=== PATIENT | female | born 1950 | race Caucasian/White ===

== ENCOUNTER → 2016-12-03 | Outpatient (CLI) | payer MEDICARE ==
--- NOTE | 2016-12-03 18:19 | CT ---
EXAMINATION TYPE: CT brain wo con DATE OF EXAM: 12/03/2016 6:06 PM COMPARISON: 01/20/2013 CT HISTORY: Headache and nausea post trauma today CT DLP: 1108.4 mGycm Automated exposure control for dose reduction was used. FINDINGS: There is no acute intracranial hemorrhage, mass effect, or midline shift identified. The v entricles and sulci are within normal limits in size. The globes are intact and the visualized sinus es are clear. Note: Prominent cerumen is incidentally noted within the left exterior auditory canal. IMPRESSION: NO ACUTE PROCESS, CT HEAD WITHOUT CONTRAST.
== END | disposition home or self-care (01) ==
LOC: RADCTMAIN 17:27
PROVIDERS: ATTEND Family Medicine
DX: S09.90XS Unspecified injury of head, sequela (principal)
CPT/HCPCS: 70450

== ENCOUNTER → 2017-03-24 | Outpatient (CLI) | payer MEDICARE | END | disposition home or self-care (01) | LOC: LABPAT 11:24 | PROVIDERS: ATTEND Surgery | DX: Z01.812 Encounter for preprocedural laboratory examination (principal) | CPT/HCPCS: 87070 ==

== ENCOUNTER → 2017-08-11 | Outpatient (CLI) | payer OTHER ==
--- NOTE | 2017-08-11 13:34 | US ---
EXAMINATION TYPE: US venous doppler duplex LE LT DATE OF EXAM: 08/11/2017 1:15 PM COMPARISON: 12/30/2012 CLINICAL HISTORY: 66-year-old female I82.409 Deep vein thrombosis, M79.662 Pain L leg. SIDE PERFORMED: Left TECHNIQUE: The lower extremity deep venous system is examined utilizing real time linear array sonog zuly with graded compression, doppler sonography and color-flow sonography. FINDINGS: VESSELS IMAGED: External Iliac Vein (EIV) Common Femoral Vein Deep Femoral Vein Greater Saphenous Vein * Femoral Vein Popliteal Vein Proximal Calf Veins (* superficial vessels) There are linear intraluminal filling defect seen within the upper femoral vein and also throughout t he popliteal vein. Only a short segment of the popliteal vein shows incomplete compressibility. IMPRESSION: Left lower extremity: Some webs and minimal strands of chronic clot within the upper femoral vein and in the popliteal vein. No occlusive thrombus or acute DVT.
== END ==
LOC: RADUSWWP 12:45
PROVIDERS: ATTEND Internal Medicine Critical Care Medicine
DX: I82.512 Chronic embolism and thrombosis of left femoral vein (principal); I82.532 Chronic embolism and thrombosis of left popliteal vein

== ENCOUNTER → 2017-09-01 | Outpatient (CLI) | payer MEDICARE ==
--- NOTE | 2017-09-01 16:49 | PN ---
PROGRESS NOTE This is an annual check regarding the obstructive sleep apnea. This is a 66-year-old female patient with severe obstructive sleep apnea with an AHI of 76. The patient is coming in for an annual check. The patient remains very compliant with CPAP therapy. She is using it every night. Her CPAP compliance for more than 4 hours is 29/30. Her average CPAP is around 6.3 hours per night. The patient's AHI while on treatment is down to 1.1. Leak factor is only 6 L/minute. Note that the patient has lost approximately 37 pounds. The patient used to weight 238 and currently she is down to 201. She is using a Dream Wear nose mask. No high pressure sensation. No swallowing of air. No belching. No abdominal distention. She is waking up alert and awake during the day and she is not having any major hypersomnia or sleepiness. No falling asleep while driving or even routine day-to-day activities. No other new onset comorbid conditions over the past 1 year. PHYSICAL EXAMINATION: BP is 121/83, pulse 80, respirations 16, temperature 97.4, saturation 97% on room air and weight is 201, height is 5 feet 5 inches, BMI 32.9. GENERAL APPEARANCE: Calm comfortable in no acute distress. Head is atraumatic, normocephalic. NECK: Supple. There is no JVD, no goiter or neck masses. Mallampati class IV. LUNGS: Clear to auscultation. HEART: Sounds regular rhythm. Normal S1, S2. No S3. No murmurs. ABDOMEN: Soft, nontender. No organomegaly. EXTREMITIES: No edema. No cyanosis or clubbing. Skin negative for ulcers, wounds or cellulitis. NEUROLOGIC: A and O x3. There is no focal neurological deficit. IMPRESSION: 1. Severe symptomatic obstructive sleep apnea with an AHI of 76. The patient currently is on CPAP pressure of 11 cm of water. The patient has lost considerable amount of weight and she has lost an additional 37 pounds and currently she is down to 201 pounds. 2. Chronic hypersomnia recovered and the patient's Alexis score is down. 3. Obesity with ongoing weight loss. PLAN: 1. Based on ongoing weight loss, I would suggest switching the patient from a fixed CPAP to an auto CPAP with a maximum pressure of 11 and minimum pressure of 4 and allow the machine to make its own adjustments as the patient is losing weight. I am sure that the patient would require lower CPAP pressure as she continues to lose weight. 2. Continue same mask interface. 3. Switch this patient to auto ramp mode. Her temperature of tubing is 81 degrees Fahrenheit, humidities is at RO mode. She is benefitting from the treatment. We will continue to follow. Renew her supplies and see me back in a year's time or earlier if needed. MMDOMO / SALMA: [id number] /
== END | disposition home or self-care (01) ==
LOC: SLEEP 14:37
PROVIDERS: ATTEND Internal Medicine Critical Care Medicine
DX: G47.33 Obstructive sleep apnea (adult) (pediatric) (principal); G47.10 Hypersomnia, unspecified; E66.9 Obesity, unspecified; Z68.32 Body mass index [BMI] 32.0-32.9, adult

== ENCOUNTER → 2018-12-07 | Outpatient (CLI) | payer MEDICARE ==
--- NOTE | 2018-12-07 18:35 | PN ---
PROGRESS NOTE Antonia is coming in for an annual check regarding her obstructive sleep apnea. She is on an APAP at a minimum pressure of 5, maximum pressure of 15. She had severe AIDAN with an AHI of 76. She is doing extremely well. Only complaint is some nose irritation from the Mirage FX nose mask. She is looking for alternatives. Otherwise her treatment has been successful. She is waking up alert and refreshed during the day. She has been averaging around 6.4 hours of CPAP use per night CPAP use for more than 4 hours is 27 out of 30. Her average pressure is at 9.8, leak is 42 per minute. AHI is down to 1.0. No other new complaints otherwise for now, no other new onset of medical problems and comorbidities. BP is 138/73, pulse 83, respirations 16, temperature 98.5, saturation 98% on room air. Weight is 206. Height is 5 feet 5 inches, BMI 33.7, [place] score is at 9. General appearance: Calm and comfortable. Head is atraumatic, normocephalic. Neck is supple. There is no JVD. No goiter or neck mass. Lungs diminished breath sounds bilaterally; otherwise clear. Heart sounds are regular rate and rhythm. Normal S1, S2. No S3. No murmurs. Abdomen is soft, nontender. No organomegaly. EXTREMITIES: No edema. No cyanosis or clubbing. Neurologically: Alert and oriented times three. There is no focal neurological deficits. IMPRESSION: 1. Severe obstructive sleep apnea AHI of 76. The patient is on a APAP, minimum of 5, maximum 15. Treatment is successful for now. The patient is compliant. 2. Hypersomnia, recovered, [place] score is down to 9. PLAN: 1. Offer this patient Air Fit N20 nose mask. She was also offered a Whisk mask. She will try both and decide if any 1 of those will be a good fit for her. 2. No change in pressure setting. She is compliant with the treatment, remains successful. Encourage weight loss. Implement good sleep hygiene measures and see me back in a few years in followup regarding AIDAN treatment. MMODL / IJN: [id number] /
== END ==
LOC: SLEEP 15:54
PROVIDERS: ATTEND Internal Medicine Critical Care Medicine
DX: G47.33 Obstructive sleep apnea (adult) (pediatric) (principal); Z99.89 Dependence on other enabling machines and devices

== ENCOUNTER → 2019-10-13 | Outpatient (CLI) | payer MEDICARE ==
[2019-10-14 13:45] LABS: IgG Subclass 3 13.4 mg/dL (11.0-85.0); IgG Subclass 4 24.9 mg/dL (3.0-175.0)
== END | disposition home or self-care (01) ==
LOC: LABWHC1 10:22
PROVIDERS: ATTEND Internal Medicine Critical Care Medicine
DX: I82.409 Acute embolism and thrombosis of unspecified deep veins of unspecified lower extremity (principal); I89.0 Lymphedema, not elsewhere classified; Z86.711 Personal history of pulmonary embolism
CPT/HCPCS: 36415; 82787

== ENCOUNTER → 2020-11-16 | Outpatient (CLI) | payer MEDICARE ==
[2020-11-16 15:37] LABS: Thyroid Peroxidase Antibodies 30.6 U/mL (0.0-60.0)
[2020-11-16 15:49] LABS: HCT 45.2 % (37.2-46.3); HGB 14.9 g/dL (12.0-15.0); MCH 30.6 pg (27.0-32.0); MCV 92.8 fL (80.0-97.0); Mean Platelet Volume 9.2 fL (9.5-12.2); Platelet Count 277 X 10*3/uL (140-440); RBC 4.87 X 10*6/uL (4.10-5.20); RDW 13.1 % (11.5-14.5); WBC 4.82 X 10*3/uL (4.50-10.00)
[2020-11-16 17:46] LABS: ALT 51 U/L (8-44); AST 24 U/L (13-35); African American GFR (CKD) 87.2 (60.0-200.0); Albumin/Globulin Ratio 1.92 (1.60-3.17); Alkaline Phosphatase 50 U/L (41-126); BUN/Creat Ratio 26.25 Ratio (12.00-20.00); C Reactive Protein <0.4 mg/dL (0.0-0.8); Calcium 9.1 mg/dL (8.7-10.3); Carbon Dioxide 24.9 mmol/L (21.6-31.8); Chloride 106 mmol/L (96-109); Chol/HDL Ratio 3.13; Cholesterol 213 mg/dL (0-200); Globulin 2.4 g/dL (1.6-3.3); Glucose 109 mg/dL (70-110); Non-African American GFR(CKD) 75.2 (60.0-200.0); Potassium 4.4 mmol/L (3.5-5.5); Sodium 140 mmol/L (135-145); Total Bilirubin 0.4 mg/dL (0.3-1.2)
[2020-11-16 19:13] LABS: Erythrocyte Sedimentation Rate 8 mm/Hr (0-30)
== END | disposition home or self-care (01) ==
LOC: LABWHC1 09:57
PROVIDERS: ATTEND Family Medicine
DX: E78.5 Hyperlipidemia, unspecified (principal); A49.02 Methicillin resistant Staphylococcus aureus infection, unspecified site
CPT/HCPCS: 36415; 80053; 80061; 84439; 84443; 84480; 84481; 84482; 85027; 85652; 86140; 86376

== ENCOUNTER → 2021-02-12 | Outpatient (CLI) | payer MEDICARE ==
--- NOTE | 2021-02-12 18:34 | PN ---
PROGRESS NOTE This is a 70-year-old female patient coming in for an annual check regarding obstructive sleep apnea. She is doing extremely well. She has an AHI of 76 consistent with severe disease and she utilizes an APAP, pressure minimum of 5, maximum of 15 cm of water, and she is using a Mirage FX nasal mask. On today's evaluation, she has remained compliant, averaging around 5.9 hours of CPAP use, and her CPAP use for more than 4 hours is exceeding 90%. Average pressure delivered by the machine is around 10 and her AHI is down to 2. She has gained weight. She used to weigh 206 pounds back in 2019 and currently she is up to 240 pounds. Despite that, her treatment remains successful. The patient has no significant complaints. REVIEW OF SYSTEMS: Fourteen-point review of systems was done. Positive findings are all mentioned above in the history of present illness. PHYSICAL EXAMINATION: VITAL SIGNS: BP is 131/80, pulse 80, respirations 12, temperature 97.1, saturation 95% on room air. Height is 5 feet 7 inches. Weight is 245. Gilbert score is 11. GENERAL APPEARANCE: Calm, comfortable. HEAD: Atraumatic, normocephalic. NECK: Supple. No JVD. No goiter or neck masses. Obese. LUNGS: Clear to auscultation. HEART: Heart sounds are regular rate and rhythm. Normal S1, S2. No S3, S4. No murmurs. ABDOMEN: Soft, nontender. No organomegaly. EXTREMITIES: No edema. No cyanosis or clubbing. IMPRESSION: 1. Severe obstructive sleep apnea, AHI of 76, currently adequately treated on APAP mode, pressure minimum of 5, maximum of 15. 2. Hypersomnia, improved. 3. Obesity with interval weight gain. Current body mass index is up to 38. PLAN: 1. I offered the patient an AirFit N20 nose mask, medium size, as an alternative for her Mirage FX nasal mask. 2. Encourage weight loss. 3. Keep the same APAP mode. 4. It has been noted that the average pressure delivered by the machine is higher and this is probably related to her increased body weight. No leaks identified for now. Continue treatment and see me back in a few years' time in followup, earlier if needed. No need for any further adjustments. Refills were given on her equipment. MMODL / IJN: [id number] /
== END ==
LOC: SLEEP 16:31
PROVIDERS: ATTEND Internal Medicine Critical Care Medicine
DX: G47.33 Obstructive sleep apnea (adult) (pediatric) (principal); E66.9 Obesity, unspecified; Z68.38 Body mass index [BMI] 38.0-38.9, adult; Z88.0 Allergy status to penicillin; Z88.2 Allergy status to sulfonamides

== ENCOUNTER → 2022-02-04 | Outpatient (CLI) | payer MEDICARE ==
--- NOTE | 2022-02-04 14:18 | P.PN ---
Subjective Progress Note Date: 02/04/22 71-year-old female patient diagnosed having severe obstructive sleep apnea coming in for an annual checkup regarding her obstructive sleep apnea. The patient is doing well and she cares the same body weight with probably few pounds weight gain over the past 1 year. She remains on CPAP therapy and the pa haylee remains on a Pap mode through her ResMed CPAP unit. She is currently at a minimum pressure of 5 and a maximum pressure of 15, a Pap mode. The patient is utilizing a Nam Fx nasal mask and her main complaint today is that she is leaking around the mask and she is having some dryness in her eye especially in the morning times. Based on that, she is looking for alternative mask. I checked the compliance data on the machine and over the past 30 days, the patient is utilizing her machine more than 4 hours 29 out of 30 days and the patient has been averaging about 6 hours of CPAP use per night. Her average pressure delivered by them she is around 9.5 cm of water. Her leak is in order of 6 L per minute and her AHI is down to 2.3. As such, the treatment is successful. Her current upper scores of 8. No chest pain. No heartburn. No shortness of breath. No major hypersomnia and sleepiness during the day. No other significant events over the past 1 year. Her health has been essentially stable. No angina. No palpitation. No congestion heart failure. Objective - Exam BP is 134/85 with a pulse of 83 respiration of 16 and weight is 248 with an Jackson score of 8 and a temperature of 98.0. Oxygen saturation 97% on room air. The patient appeared well nourished and normally developed. Vital signs as documented. Head exam is unremarkable. No scleral icterus or corneal arcus noted. Neck is without jugular venous distension, thyromegaly, or carotid bruits. Carotid upstrokes are brisk bilaterally. Lungs are clear to auscultation and percussion. Cardiac exam reveals the PMI to be normally sized and situated. Rhythm is regular. First and second heart sounds normal. No murmurs, rubs or gallops. Abdominal exam reveals normal bowel sounds, no masses, no organomegaly and no aortic enlargement. Extremities are nonedematous and both femoral and pedal pulses are normal.Examination of the skin revealed no evidence of si gnificant rashes, suspicious appearing nevi or other concerning lesions.Neurologically, the patient is awake and alert and the patient does not have any focal neurological deficit. Cranial nerves are essentially intact. Assessment and Plan Plan: 1 severe obstructive sleep apnea with an AHI of 76. The patient is undergoing successful APAP treatment 2 hypersomnia, chronic, improved with CPAP therapy 3 obesity with a body weight of 248 4 Dryness of the eyes Plan Continue CPAP therapy at the same pressure settings, the patient will be kept on APAP mode, 5/15 cm of water Switch this patient an air-fit N20 medium size nasal mask The mask that was done in the office today and the patient had a good seal and her mask interface seemed to be quite comfortable Encourage weight loss changes the humidity level down to 2 and drop the temperature of the tubing to 78 seen back in the office in a year's time follow-up. Anticipate improvement and the dryness of the eye with a new mask.
== END ==
LOC: SLEEP 13:19
PROVIDERS: ATTEND Internal Medicine Critical Care Medicine
DX: G47.33 Obstructive sleep apnea (adult) (pediatric) (principal); Z99.89 Dependence on other enabling machines and devices; E66.9 Obesity, unspecified; H04.129 Dry eye syndrome of unspecified lacrimal gland; Z88.0 Allergy status to penicillin; Z88.2 Allergy status to sulfonamides

== ENCOUNTER 2022-07-20 19:23 | Emergency (ER) | payer OTHER, MEDICARE ==
[2022-07-20 19:34] VITALS: TEMP 97.8
[2022-07-20 20:12] LABS: Basophils % (A) 0 %; Eosinophils # (A) 0.1 k/uL (0-0.7); Eosinophils % (A) 2 %; HCT 45.2 % (34.0-46.0); HGB 15.6 gm/dL (11.4-16.0); Lymphocytes % (A) 34 %; MCH 31.9 pg (25.0-35.0); MCHC 34.5 g/dL (31.0-37.0); MCV 92.3 fL (80.0-100.0); Mean Platelet Volume 7.3; Monocytes # (A) 0.6 k/uL (0-1.0); Monocytes % (A) 7 %; Neutrophils # (A) 4.8 k/uL (1.3-7.7); Neutrophils % (A) 55 %; Platelet Count 347 k/uL (150-450); RDW 12.9 % (11.5-15.5); WBC 8.8 k/uL (3.8-10.6)
[2022-07-20 20:21] LABS: Potassium 3.8 mmol/L (3.5-5.1)
[2022-07-20 20:22] LABS: Albumin 4.7 g/dL (3.5-5.0); Calcium 9.7 mg/dL (8.4-10.2); Magnesium 2.1 mg/dL (1.6-2.3); Total Bilirubin 0.3 mg/dL (0.2-1.3); Total Protein 7.5 g/dL (6.3-8.2)
--- NOTE | 2022-07-20 20:27 | XR ---
EXAMINATION TYPE: XR chest 2V DATE OF EXAM: 07/20/2022 8:14 PM COMPARISON: CTA chest 12/14/2013 TECHNIQUE: XR chest 2V . CLINICAL INDICATION:Female, 71 years old with history of Chest Pain; FINDINGS: Lungs/Pleura: There is no evidence of pleural effusion, focal consolidation, or pneumothorax. Pulmonary vascularity: Unremarkable. Heart/mediastinum: Cardiomediastinal silhouette is unremarkable. Musculoskeletal: Multiple level degenerative disc disease changes seen throughout the spine. IMPRESSION: No acute cardiopulmonary disease/process.
[2022-07-20 20:32] LABS: INR 0.9 (<1.2); Partial Thromboplastin Time 26.1 sec (22.0-30.0); Prothrombin Time 9.9 sec (9.0-12.0)
--- NOTE | 2022-07-20 21:15 | US ---
EXAMINATION TYPE: US venous doppler duplex LE DATE OF EXAM: 07/20/2022 9:02 PM COMPARISON: Lower extremity venous duplex 08/11/2017 CLINICAL HISTORY: leg pain. Pt states left leg pain, h/o DVT, pt currently not on blood thinners SIDE PERFORMED: Left TECHNIQUE: The lower extremity deep venous system is examined utilizing real time linear array sonog zuly with graded compression, doppler sonography and color-flow sonography. VESSELS IMAGED: Common Femoral Vein Deep Femoral Vein Greater Saphenous Vein * Femoral Vein Popliteal Vein Small Saphenous Vein * Proximal Calf Veins (* superficial vessels) Left Leg: Negative for acute DVT. Non-occluding chronic thrombus within left popliteal veins, simila r findings to prior US of 08/11/2017 IMPRESSION: 1. Non-occlusive chronic thrombus of the left popliteal vein, similar to prior imaging dated 7. No evidence for deep vein thrombosis.
--- NOTE | 2022-07-20 21:51 | CT ---
EXAMINATION TYPE: CT chest angio for PE CT DLP: 536.2 mGycm, Automated exposure control for dose reduction was used. DATE OF EXAM: 07/20/2022 9:42 PM COMPARISON: Chest radiograph from same day. CTA chest 01/21/2013. CLINICAL INDICATION:Female, 71 years old with history of elevated d-dimer; concern for pulmonary embo lism TECHNIQUE/CONTRAST: CTA scan of the thorax is performed with IV Contrast, patient injected with 70 mL of Isovue 370, pulm onary embolism protocol. MIP images are created and reviewed. FINDINGS: Pulmonary Artery: There is no evidence for a filling defect within the pulmonary vasculature to sugge st acute pulmonary embolism. The pulmonary artery is of normal size. Lungs/Pleura: Posterior dependent subsegmental atelectasis is noted. No focal airspace consolidation. No pleural effusion or pneumothorax. Airway: Large airways are patent. Heart: Heart is within normal limits for size.. Vasculature: No evidence of aortic aneurysm. Mediastinum: No gross evidence of adenopathy. Musculoskeletal: Mild degenerative disc disease changes are present throughout the thoracolumbar spin e. Soft Tissues: Unremarkable. Lower neck: No significant findings. Upper Abdomen: Diffuse low-attenuation to the liver parenchyma. Small hiatal hernia.. IMPRESSION: 1. No evidence of pulmonary embolism or acute cardiopulmonary process.
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
[2022-07-20 22:05] VITALS: BP 119/77; PULSE 82; RESP 18
== END 2022-07-20 22:12 | disposition home or self-care (01) ==
LOC: EC 19:23
DX: R79.89 Other specified abnormal findings of blood chemistry (principal); M79.662 Pain in left lower leg; I25.2 Old myocardial infarction; Z88.0 Allergy status to penicillin; Z88.2 Allergy status to sulfonamides
CPT/HCPCS: 36415; 93005; 85379; 83880; 80053; 83690; 83735; 84484; 85025; 85610; 85730; 71046; 93971; 71275; 99285; Q9967

== ENCOUNTER → 2023-12-14 | Outpatient (CLI) | payer MEDICARE | END | disposition home or self-care (01) | LOC: LABWHC1 14:05 | PROVIDERS: ATTEND Family Medicine | DX: E78.5 Hyperlipidemia, unspecified (principal) | CPT/HCPCS: 36415; 85384 ==

== ENCOUNTER 2024-01-22 05:08 | Inpatient (IN) | payer OTHER, MEDICARE ==
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
[2024-01-22] MEDS: SODIUM CHLORIDE 0.9% 1,000 ML IV STA (05:55)
[2024-01-22 06:20] LABS: Basophils # (A) 0.1 k/uL (0-0.2); Basophils % (A) 0 %; Eosinophils # (A) 0.1 k/uL (0-0.7); Eosinophils % (A) 1 %; HCT 46.5 % (34.0-46.0); HGB 15.3 gm/dL (11.4-16.0); Lymphocytes # (A) 0.7 k/uL (1.0-4.8); Lymphocytes % (A) 3 %; MCH 30.9 pg (25.0-35.0); MCHC 32.9 g/dL (31.0-37.0); MCV 93.9 fL (80.0-100.0); Mean Platelet Volume 7.1; Monocytes # (A) 0.9 k/uL (0-1.0); Monocytes % (A) 4 %; Neutrophils # (A) 19.4 k/uL (1.3-7.7); Neutrophils % (A) 91 %; Platelet Count 328 k/uL (150-450); RBC 4.95 m/uL (3.80-5.40); WBC 21.2 k/uL (3.8-10.6)
[2024-01-22 06:45] LABS: ALT 51 U/L (4-34); AST 35 U/L (14-36); African American GFR (CKD) >90 (>60 ml/min/1.73 sqM); Albumin 4.7 g/dL (3.5-5.0); Alkaline Phosphatase 58 U/L (38-126); Anion Gap 14 mmol/L; Blood Urea Nitrogen 19 mg/dL (7-17); Calcium 9.4 mg/dL (8.4-10.2); Carbon Dioxide 20 mmol/L (22-30); Chloride 104 mmol/L (98-107); Glucose 123 mg/dL (74-99); Magnesium 1.6 mg/dL (1.6-2.3); Non-African American GFR(CKD) 81 (>60 ml/min/1.73 sqM); Phosphorus 2.5 mg/dL (2.5-4.5); Potassium 4.3 mmol/L (3.5-5.1); Sodium 138 mmol/L (137-145); Total Bilirubin 0.7 mg/dL (0.2-1.3); Total Protein 7.9 g/dL (6.3-8.2)
[2024-01-22 06:47] LABS: INR 0.9 (<1.2); Partial Thromboplastin Time 27.4 sec (22.0-30.0); Prothrombin Time 10.2 sec (10.0-12.5)
[2024-01-22] MEDS: ACETAMINOPHEN IV (For NPO) 1,000 MG in EMPTY BAG 1 BAG IVPB STA (06:58)
[2024-01-22] MEDS: IBUPROFEN 800 MG TAB PO STA (06:59)
--- NOTE | 2024-01-22 08:27 | US ---
EXAMINATION TYPE: US venous doppler duplex LE DATE OF EXAM: 01/22/2024 8:15 AM COMPARISON: [facility] 07/20/2022 CLINICAL INDICATION: Female, 73 years old with history of pain; Hx of DVT, PE. Pain in left leg x 5 h ours. Patient does not take blood thinners. SIDE PERFORMED: Bilateral TECHNIQUE: The lower extremity deep venous system is examined utilizing real time linear array sonog zuly with graded compression, doppler sonography and color-flow sonography. VESSELS IMAGED: Common Femoral Vein Deep Femoral Vein Greater Saphenous Vein * Femoral Vein Popliteal Vein Small Saphenous Vein * Proximal Calf Veins (* superficial vessels) Right Leg: No evidence of DVT. Complex area seen right popliteal fossa: 5.6 x 3.5 x 1.3 cm. Left Leg: Internal echoes seen within prox-mid popliteal vein. Prox-mid popliteal vein appears to compress incompletely with color defect visualized. Remaining veins appear to compress and show color flow. IMPRESSION: 1. Echoes within the left popliteal vein suggests chronic nonocclusive thrombus. 2. No evidence of right deep vein tendinosis. 3. Popliteal fossa cyst.
[2024-01-22 09:44] LABS: Appearance,Urine Clear (Clear); Bilirubin,Urine Negative (Negative); Blood,Urine Small (Negative); Color,Urine Colorless; Glucose,Urine (UA) Negative (Negative); Ketones,Urine 2+ (Negative); Leukocyte Esterase,Urine Large (Negative); Mucus,Urine Rare /hpf; Nitrite,Urine Negative (Negative); PH, Urine 5.5 (5.0-8.0); Protein,Urine Negative (Negative); RBC,Urine 4 /hpf (0-5); Specific Gravity,Urine 1.014 (1.001-1.035); Squamous Epithelial Cell,Urine 2 /hpf (0-4); Urobilinogen,Urine <2.0 mg/dL (<2.0); WBC,Urine 26 /hpf (0-5)
--- NOTE | 2024-01-22 09:49 | CT ---
CTA CHEST EXAMINATION TYPE: CT angio chest DATE OF EXAM: 01/22/2024 INDICATION: Pain CT DLP: 485.1 mGycm, Automated exposure control for dose reduction was used. CONTRAST: Patient injected with 100 ml mL of Isovue 370. COMPARISON: 12/14/2013 TECHNIQUE: CT of the chest is performed on a spiral scan at 2 mm thick sections. Study is performed with intravenous contrast timed for evaluation for pulmonary embolism. This will limit additional po rtions of the evaluation. 3-D MIP images reconstructed by the technologist are reviewed on the compu ter in the coronal and sagittal planes. FINDINGS: No persistent filling defects are evident to suggest an acute pulmonary embolism. No mediastinal or hilar adenopathy enlarged by CT criteria is evident. Scattered small mediastinal n odes are present. The ascending aorta diameter at the level of the main pulmonary artery is 2.8 cm. The main pulmonary artery diameter at the bifurcation is 2.8 cm. Lung windows are clear. Limited CT sections were through the upper abdomen. Small hiatal hernia is present. Some mild fatty i nfiltration of the liver. IMPRESSION: 1. No acute pulmonary embolism. 2. No acute pulmonary process. 3. Small hiatal hernia. 4. Mild fatty infiltration of the liver.
[2024-01-22] MEDS ORDERED: VANCOMYCIN IV PER PHARMACY 1 EACH MISC MISCELLANE PRN (10:14)
[2024-01-22] MEDS ORDERED: ACETAMINOPHEN TAB 325 MG TAB PO PRN (10:35)
[2024-01-22] MEDS ORDERED: NALOXONE 0.4 MG/ML 1 ML VIAL IV PRN (10:35)
[2024-01-22] MEDS: VANCOMYCIN 1,750 MG in SODIUM CHLORIDE 0.9% 500 ML 500 ML IVPB ONE (11:03)
[2024-01-22] MEDS: SODIUM CHLORIDE 0.9% 1,000 ML IV SCH (11:04)
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
[2024-01-23] MEDS ORDERED: VANCOMYCIN 1,750 MG in SODIUM CHLORIDE 0.9% 500 ML 500 ML IVPB SCH
[2024-01-23] MEDS: NYSTATIN 100,000UNIT/GM CREAM 30 GM TUBE TOPICAL SCH (09:33)
[2024-01-23 09:38] LABS: Basophils # (A) 0.04 X 10*3/uL (0.00-0.10); Basophils % (A) 0.3 %; Eosinophils # (A) 0.01 X 10*3/uL (0.04-0.35); Eosinophils % (A) 0.1 %; HCT 40.3 % (37.2-46.3); Lymphocytes % (A) 9.3 %; MCH 30.4 pg (27.0-32.0); MCHC 32.3 g/dL (32.0-37.0); MCV 94.2 FL (80.0-97.0); Mean Platelet Volume 9.2 FL (9.5-12.2); Monocytes # (A) 0.76 X 10*3/uL (0.20-1.00); Monocytes % (A) 5.9 %; NRBC Per 100 WBC 0 X 10*3/uL (0.00-0.01); Neutrophils # (A) 10.87 X 10*3/uL (1.80-7.70); Platelet Count 265 X 10*3/uL (140-440); RBC 4.28 X 10*6/uL (4.10-5.20); RDW 13.9 % (11.5-14.5); WBC 12.93 X 10*3/uL (4.50-10.00)
[2024-01-23 10:48] LABS: ALT 36 U/L (8-44); AST 20 U/L (13-35); Albumin 3.9 g/dL (3.8-4.9); Albumin/Globulin Ratio 1.56 Ratio (1.60-3.17); Alkaline Phosphatase 44 U/L (41-126); Blood Urea Nitrogen 15.6 mg/dL (9.0-27.0); Calcium 8.6 mg/dL (8.7-10.3); Chloride 105 mmol/L (96-109); Globulin 2.5 g/dL (1.6-3.3); Glucose 107 mg/dL (70-110); Potassium 4.2 mmol/L (3.5-5.5); Sodium 139 mmol/L (135-145); Total Bilirubin 0.2 mg/dL (0.3-1.2); Total Protein 6.4 g/dL (6.2-8.2)
[2024-01-23] MEDS: LACTOBACILLUS ACIDOPHILUS/PECT 1 EACH CAPSULE PO SCH (13:22)
--- NOTE | 2024-01-23 13:52 | P.PN ---
Subjective Progress Note Date: 01/23/24 patient is a 73-year-old lady with past medical significant for DVT, PE, lymphedema who presented to the ER the ER because of left leg pain and swelling for 1 day. Patient stated that she was all right last night when she noticed that her left leg was slightly more swollen and red in the calf area. Patient normally wraps her legs at night but yesterday she did not do it because of pain. Over the course of the night patient was feeling more pain in the left leg and also started having chills and weakness. There is no current nausea or vomiting. This morning patient woke up more sick compared to yesterday and decided to come to the ER. Initial lab work done in the ER showed WBC 21.2, hemoglobin 15.3, platelet count 328, sodium 130, potassium 4.3, BUN 19, creatinine 0.74, glucose 123, lactate 1 .1, AST 35, ALT 51, troponin 0.012 UA done showed urine nitrite negative, leukocyte Estrace large amounts, urine WBC 26, Influenza A not detected Influenza B not detected RSV not detected COVID-19 not detected CTA chest done negative for PE Ultrasound of left lower extremity showed chronic nonocclusive thrombus Patient admitted to internal medicine service 01/22. Patient seen and examined. Still has redness of left lower extremity. Denies any fever or chill. Vital signs stable. Blood work done this morning showed the pupils to 12.93, hemoglobin 13, platelet count 265 REVIEW OF SYSTEMS: CONSTITUTIONAL: No fever, no malaise,. CARDIOVASCULAR: No chest pain, no palpitations, no syncope. PULMONARY: No shortness of breath, no cough, GASTROINTESTINAL: No diarrhea, no nausea, no vomiting, no abdominal pain. NEUROLOGICAL: No headaches, no weakness, PHYSICAL EXAMINATION: GENERAL: The patient is alert and oriented x3, not in any acute distress. Well developed, well nourished. HEENT: Pupils are round and equally reacting to light. EOMI. No scleral icterus. No conjunctival pallor. Normocephalic, atraumatic. No pharyngeal erythema. No thyromegaly. CARDIOVASCULAR: S1 and S2 present. No murmurs, rubs, or gallops. PULMONARY: Chest is clear to auscultation, no wheezing or crackles. ABDOMEN: Soft, nontender, nondistended, normoactive bowel sounds. No palpable organomegaly. MUSCULOSKELETAL: No joint swelling or deformity. EXTREMITIES: left calf erythema seen NEUROLOGICAL: Gross neurological examination did not reveal any focal deficits. SKIN: No rashes. Assessment and plan Left lower extremity cellulitis Chronic nonocclusive thrombus of left lower extremity Monitor vital signs Monitor CBC Monitor CMP Continue IV fluids continue IV cefazolin continue pain management ID following hematology oncology consulted for chronic nonocclusive thrombus of left lower extremity Labs and medication were reviewed.. Continue same treatment. Continue with symptomatic treatment. Resume home medication. Monitor labs and vitals. DVT and GI prophylaxis. Further recommendations as per clinical course of the patient Dictation was produced using [employer] dictation software. please excuse any grammatical, word or spelling errors. Objective - Vital Signs Vital signs: Vital Signs Temp 98.1 F 01/23/24 08:00 Pulse 81 01/23/24 08:00 Resp 18 01/23/24 08:00 BP 125/75 01/23/24 08:00 Pulse Ox 99 01/23/24 08:00 FiO2 Intake & Output 01/22/24 01/23/24 01/23/24 18:59 06:59 18:59 Weight 104.326 kg Other: Voiding Method Toilet Toilet # Voids 2 2 - Labs CBC & Chem 7: 01/23/24 04:38 01/23/24 04:38 Labs: Abnormal Lab Results - Last 24 Hours (Table) 01/22/24 01/22/24 01/23/24 Range/Units 05:27 05:27 04:38 WBC 12.93 H (4.50-10.00) X 10*3/uL MPV 9.2 L (9.5-12.2) FL Immature Gran # 0.05 H (0.00-0.04) X 10*3/uL Neutrophils # 10.87 H (1.80-7.70) X 10*3/uL Eosinophils # 0.01 L (0.04-0.35) X 10*3/uL ESR 34 H (0-30) mm/Hr Calcium (8.7-10.3) mg/dL Total Bilirubin (0.3-1.2) mg/dL C-Reactive Protein 2.1 H (<1.0) mg/dL Albumin/Globulin Ratio (1.60-3.17) Ratio 01/23/24 Range/Units 04:38 WBC (4.50-10.00) X 10*3/uL MPV (9.5-12.2) FL Immature Gran # (0.00-0.04) X 10*3/uL Neutrophils # (1.80-7.70) X 10*3/uL Eosinophils # (0.04-0.35) X 10*3/uL ESR (0-30) mm/Hr Calcium 8.6 L (8.7-10.3) mg/dL Total Bilirubin 0.2 L (0.3-1.2) mg/dL C-Reactive Protein (<1.0) mg/dL Albumin/Globulin Ratio 1.56 L (1.60-3.17) Ratio Microbiology - Last 24 Hours (Table) 01/22/24 06:45 Blood Culture - Preliminary Blood 01/22/24 06:30 Blood Culture - Preliminary Blood
--- NOTE | 2024-01-23 23:18 | P.PN ---
Subjective Progress Note Date: 01/23/24 Principal diagnosis: Reason for follow-up is left lower extremity cellulitis Patient is a 73-year-old female with a past medical history significant for left lower extremity DVT PE hypothyroidism presenting to the hospital with increasing pain swelling redness to left lower extremity has been diagnosed with a left lower extremity cellulitis On today's evaluation that is 01/23/2024,the patient remains to be afebrile, patient is on room air not requiring supplemental oxygen and denies any shortness of breath no chest pain or cough.Patient denies having any nausea or vomiting, no abdominal pain however complaining of some diarrhea has been reported, left lower extremity swelling redness slightly decreased Patient white count is down to 12.93, creatinine 0.8 Objective - Vital Signs Vital signs: Vital Signs Temp 98.1 F 01/23/24 08:00 Pulse 81 01/23/24 08:00 Resp 18 01/23/24 08:00 BP 125/75 01/23/24 08:00 Pulse Ox 99 01/23/24 08:00 FiO2 Intake & Output 01/22/24 01/23/24 01/23/24 18:59 06:59 18:59 Weight 104.326 kg Other: Voiding Method Toilet Toilet # Voids 2 - Exam GENERAL DESCRIPTION: An elderly female lying in bed in no distress RESPIRATORY SYSTEM: Unlabored breathing , decreased breath sounds at bases HEART: S1 S2 regular rate and rhythm , ABDOMEN: Soft , no tenderness EXTREMITIES: Left leg swelling redness slightly decreased Exam completed with the help of LEGAL STENOGRAPHER - Labs CBC & Chem 7: 01/23/24 04:38 01/23/24 04:38 Labs: Abnormal Lab Results - Last 24 Hours (Table) 01/22/24 01/22/24 01/23/24 Range/Units 05:27 05:27 04:38 WBC 12.93 H (4.50-10.00) X 10*3/uL MPV 9.2 L (9.5-12.2) FL Immature Gran # 0.05 H (0.00-0.04) X 10*3/uL Neutrophils # 10.87 H (1.80-7.70) X 10*3/uL Eosinophils # 0.01 L (0.04-0.35) X 10*3/uL ESR 34 H (0-30) mm/Hr Calcium (8.7-10.3) mg/dL Total Bilirubin (0.3-1.2) mg/dL C-Reactive Protein 2.1 H (<1.0) mg/dL Albumin/Globulin Ratio (1.60-3.17) Ratio 04/20/24 Range/Units 04:38 WBC (4.50-10.00) X 10*3/uL MPV (9.5-12.2) FL Immature Gran # (0.00-0.04) X 10*3/uL Neutrophils # (1.80-7.70) X 10*3/uL Eosinophils # (0.04-0.35) X 10*3/uL ESR (0-30) mm/Hr Calcium 8.6 L (8.7-10.3) mg/dL Total Bilirubin 0.2 L (0.3-1.2) mg/dL C-Reactive Protein (<1.0) mg/dL Albumin/Globulin Ratio 1.56 L (1.60-3.17) Ratio Assessment and Plan Plan: 1patient presented to hospital with sepsis in this patient who did have a fever tachycardia elevated white count source is acute left lower extremity cellulitis in this patient with diffuse swelling and redness and evidence of athlete's foot likely streptococcal disease, clinically doubt MRSA or gram-negative infection 2-patient with multiple antibiotic ALLERGIES that would limit the number of antibiotic safe to use 3-marked area of the redness 4-patient to continue with cefazolin 2 g every 8 hours, we will Hep-Lock her IV fluid and add probiotics for her diarrhea 5-nystatin cream intermittently to twice a day Dictation was produced using [employer] dictation software. please excuse any grammatical, word or spelling errors. Time with Patient: Greater than 30
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
--- NOTE | 2024-01-24 12:13 | P.PN ---
Subjective Progress Note Date: 01/24/24 patient is a 73-year-old lady with past medical significant for DVT, PE, lymphedema who presented to the ER the ER because of left leg pain and swelling for 1 day. Patient stated that she was all right last night when she noticed that her left leg was slightly more swollen and red in the calf area. Patient normally wraps her legs at night but yesterday she did not do it because of pain. Over the course of the night patient was feeling more pain in the left leg and also started having chills and weakness. There is no current nausea or vomiting. This morning patient woke up more sick compared to yesterday and decided to come to the ER. Initial lab work done in the ER showed WBC 21.2, hemoglobin 15.3, platelet count 328, sodium 130, potassium 4.3, BUN 19, creatinine 0.74, glucose 123, lactate 1 .1, AST 35, ALT 51, troponin 0.012 UA done showed urine nitrite negative, leukocyte Estrace large amounts, urine WBC 26, Influenza A not detected Influenza B not detected RSV not detected COVID-19 not detected CTA chest done negative for PE Ultrasound of left lower extremity showed chronic nonocclusive thrombus Patient admitted to internal medicine service 01/22. Patient seen and examined. Still has redness of left lower extremity. Denies any fever or chill. Vital signs stable. Blood work done this morning showed the pupils to 12.93, hemoglobin 13, platelet count 265 01/23. Patient seen and examined. Left lower extremity redness has been improving. ID recommended 1 more day of IV antibiotics REVIEW OF SYSTEMS: CONSTITUTIONAL: No fever, no malaise,. CARDIOVASCULAR: No chest pain, no palpitations, no syncope. PULMONARY: No shortness of breath, no cough, GASTROINTESTINAL: No diarrhea, no nausea, no vomiting, no abdominal pain. NEUROLOGICAL: No headaches, no weakness, PHYSICAL EXAMINATION: GENERAL: The patient is alert and oriented x3, not in any acute distress. Well developed, well nourished. HEENT: Pupils are round and equally reacting to light. EOMI. No scleral icterus. No conjunctival pallor. Normocephalic, atraumatic. No pharyngeal erythema. No thyromegaly. CARDIOVASCULAR: S1 and S2 present. No murmurs, rubs, or gallops. PULMONARY: Chest is clear to auscultation, no wheezing or crackles. ABDOMEN: Soft, nontender, nondistended, normoactive bowel sounds. No palpable organomegaly. MUSCULOSKELETAL: No joint swelling or deformity. EXTREMITIES: left calf erythema seen improving from before NEUROLOGICAL: Gross neurological examination did not reveal any focal deficits. SKIN: No rashes. Assessment and plan Left lower extremity cellulitis Chronic nonocclusive thrombus of left lower extremity Monitor vital signs Monitor CBC Monitor CMP Continue IV fluids continue IV cefazolin continue pain management ID following hematology oncology consulted for chronic nonocclusive thrombus of left lower extremity, they recommended no need for any anticoagulation Labs and medication were reviewed.. Continue same treatment. Continue with symptomatic treatment. Resume home medication. Monitor labs and vitals. DVT and GI prophylaxis. Further recommendations as per clinical course of the patient Dictation was produced using [employer] dictation software. please excuse any grammatical, word or spelling errors. Objective - Vital Signs Vital signs: Vital Signs Temp 98.1 F 01/24/24 07:28 Pulse 70 01/24/24 07:28 Resp 16 01/24/24 07:28 BP 135/79 01/24/24 07:28 Pulse Ox 98 01/24/24 07:28 FiO2 Intake & Output 01/23/24 01/24/24 01/24/24 18:59 06:59 18:59 Other: Voiding Method Toilet Toilet # Voids 2 1 - Labs CBC & Chem 7: 01/23/24 04:38 01/23/24 04:38 Labs: Microbiology - Last 24 Hours (Table) 01/22/24 06:45 Blood Culture - Preliminary Blood 01/22/24 06:30 Blood Culture - Preliminary Blood
[2024-01-24 12:25] LABS: African American GFR (CKD) 74 (>60 ml/min/1.73 sqM); Non-African American GFR(CKD) 64 (>60 ml/min/1.73 sqM)
[2024-01-25 11:13] LABS: HCT 46.5 % (37.2-46.3); HGB 15.2 g/dL (12.0-15.0); MCHC 32.7 g/dL (32.0-37.0); MCV 94.9 FL (80.0-97.0); NRBC Per 100 WBC 0 X 10*3/uL (0.00-0.01); Platelet Count 306 X 10*3/uL (140-440); RDW 14.6 % (11.5-14.5); WBC 6.94 X 10*3/uL (4.50-10.00)
[2024-01-25 11:14] LABS: Basophils # (A) 0.04 X 10*3/uL (0.00-0.10); Basophils % (A) 0.6 %; Eosinophils # (A) 0.19 X 10*3/uL (0.04-0.35); Eosinophils % (A) 2.7 %; Lymphocytes # (A) 2.75 X 10*3/uL (0.90-5.00); Lymphocytes % (A) 39.6 %; Monocytes # (A) 0.79 X 10*3/uL (0.20-1.00); Monocytes % (A) 11.4 %; Neutrophils # (A) 3.15 X 10*3/uL (1.80-7.70); Neutrophils % (A) 45.4 %
--- NOTE | 2024-01-25 12:29 | P.PN ---
Subjective Progress Note Date: 01/24/24 Principal diagnosis: Reason for follow-up is left lower extremity cellulitis Patient is a 73-year-old female with a past medical history significant for left lower extremity DVT PE hypothyroidism presenting to the hospital with increasing pain swelling redness to left lower extremity has been diagnosed with a left lower extremity cellulitis On today's evaluation that is 01/24/2024, the patient continues to be afebrile, the patient is on room air and breathing comfortably, the Pt denies having any chest pain or cough, the patient denies having any abdominal pain no vomiting or any diarrhea diarrhea seems to have improved still complaining of pain to the left lower extremity redness slightly decreased, Creatinine 0.90 CBC was done today Objective - Vital Signs Vital signs: Vital Signs Temp 98.1 F 01/24/24 07:28 Pulse 70 01/24/24 07:28 Resp 16 01/24/24 07:28 BP 135/79 01/24/24 07:28 Pulse Ox 98 01/24/24 07:28 FiO2 Intake & Output 01/23/24 01/24/24 01/24/24 18:59 06:59 18:59 Other: Voiding Method Toilet Toilet # Voids 2 1 - Exam GENERAL DESCRIPTION: An elderly female lying in bed in no distress RESPIRATORY SYSTEM: Unlabored breathing , decreased breath sounds at bases HEART: S1 S2 regular rate and rhythm , ABDOMEN: Soft , no tenderness EXTREMITIES: Left leg swelling redness slightly decreased Exam completed with the help of [employer] PV - Labs CBC & Chem 7: 01/25/24 06:33 01/24/24 11:44 Labs: Abnormal Lab Results - Last 24 Hours (Table) 01/23/24 01/23/24 Range/Units 04:38 04:38 WBC 12.93 H (4.50-10.00) X 10*3/uL MPV 9.2 L (9.5-12.2) FL Immature Gran # 0.05 H (0.00-0.04) X 10*3/uL Neutrophils # 10.87 H (1.80-7.70) X 10*3/uL Eosinophils # 0.01 L (0.04-0.35) X 10*3/uL Calcium 8.6 L (8.7-10.3) mg/dL Total Bilirubin 0.2 L (0.3-1.2) mg/dL Albumin/Globulin Ratio 1.56 L (1.60-3.17) Ratio Microbiology - Last 24 Hours (Table) 01/22/24 06:45 Blood Culture - Preliminary Blood 01/22/24 06:30 Blood Culture - Preliminary Blood Assessment and Plan (1) Left leg cellulitis Current Visit: Yes Status: Acute Code(s): L03.116 - CELLULITIS OF LEFT LOWER LIMB SNOMED Code(s): 74619006098048119 Plan: 1patient presented to hospital with sepsis in this patient who did have a fever tachycardia elevated white count source is acute left lower extremity cellulitis in this patient with diffuse swelling and redness and evidence of athlete's foot likely streptococcal disease, clinically doubt MRSA or gram-negative infection 2-patient did have some clinical improvement and will continue with cefazolin 2 g every 8 hours along with nystatin cream intermittently to twice a day Dictation was produced using [employer] dictation software. please excuse any grammatical, word or spelling errors. Time with Patient: Less than 30
--- NOTE | 2024-01-25 12:33 | P.PN ---
Subjective Progress Note Date: 01/25/24 Principal diagnosis: Reason for follow-up is left lower extremity cellulitis Patient is a 73-year-old female with a past medical history significant for left lower extremity DVT PE hypothyroidism presenting to the hospital with increasing pain swelling redness to left lower extremity has been diagnosed with a left lower extremity cellulitis On today's evaluation that is 01/25/2024, Patient is afebrile patient is currently on room air and denies having any shortness of breath, the patient denies any chest pain or cough, the patient denies any nausea vomiting did not have any abdominal pain and no diarrhea, still complaining of pain when she takes initial steps on the left foot complaining of some blistering in the mouth last night but no rash Patient white count normalized to 6.94 blood culture negative Objective - Vital Signs Vital signs: Vital Signs Temp 98.2 F 01/25/24 08:00 Pulse 83 01/25/24 08:00 Resp 16 01/25/24 08:00 BP 115/78 01/25/24 08:00 Pulse Ox 94 L 01/25/24 08:00 FiO2 Intake & Output 01/24/24 01/25/24 01/25/24 18:59 06:59 18:59 Other: Voiding Method Toilet Toilet # Voids 3 2 - Exam GENERAL DESCRIPTION: An elderly female lying in bed in no distress RESPIRATORY SYSTEM: Unlabored breathing , decreased breath sounds at bases HEART: S1 S2 regular rate and rhythm , ABDOMEN: Soft , no tenderness EXTREMITIES: Left leg swelling redness slightly decreased - Labs CBC & Chem 7: 01/25/24 06:33 01/24/24 11:44 Labs: Abnormal Lab Results - Last 24 Hours (Table) 01/25/24 Range/Units 06:33 Hgb 15.2 H (12.0-15.0) g/dL Hct 46.5 H (37.2-46.3) % RDW 14.6 H (11.5-14.5) % Microbiology - Last 24 Hours (Table) 01/22/24 06:45 Blood Culture - Preliminary Blood 01/22/24 06:30 Blood Culture - Preliminary Blood Assessment and Plan (1) Left leg cellulitis Current Visit: Yes Status: Acute Code(s): L03.116 - CELLULITIS OF LEFT LOWER LIMB SNOMED Code(s): 67570035248996135 Plan: 1patient presented to hospital with sepsis in this patient who did have a fever tachycardia elevated white count source is acute left lower extremity cellulitis in this patient with diffuse swelling and redness and evidence of athlete's foot likely streptococcal disease, clinically doubt MRSA or gram-negative infection 2-clinically doubt the patient did have allergic reaction to cefazolin last night this was explained to the patient we will give her a dose this morning and I will watch her personally nursing staff has been advised if any issues to let me know Jewel wrap to the leg to get some of the swelling down and I will reeval the patient tomorrow multiple question concern answered Dictation was produced using [employer] dictation software. please excuse any grammatical, word or spelling errors. Time with Patient: Greater than 30
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
--- NOTE | 2024-01-25 20:51 | P.PN ---
Subjective Progress Note Date: 01/25/24 patient is a 73-year-old lady with past medical significant for DVT, PE, lymphedema who presented to the ER the ER because of left leg pain and swelling for 1 day. Patient stated that she was all right last night when she noticed that her left leg was slightly more swollen and red in the calf area. Patient normally wraps her legs at night but yesterday she did not do it because of pain. Over the course of the night patient was feeling more pain in the left leg and also started having chills and weakness. There is no current nausea or vomiting. This morning patient woke up more sick compared to yesterday and decided to come to the ER. Initial lab work done in the ER showed WBC 21.2, hemoglobin 15.3, platelet count 328, sodium 130, potassium 4.3, BUN 19, creatinine 0.74, glucose 123, lactate 1 .1, AST 35, ALT 51, troponin 0.012 UA done showed urine nitrite negative, leukocyte Estrace large amounts, urine WBC 26, Influenza A not detected Influenza B not detected RSV not detected COVID-19 not detected CTA chest done negative for PE Ultrasound of left lower extremity showed chronic nonocclusive thrombus Patient admitted to internal medicine service 01/22. Patient seen and examined. Still has redness of left lower extremity. Denies any fever or chill. Vital signs stable. Blood work done this morning showed the pupils to 12.93, hemoglobin 13, platelet count 265 01/23. Patient seen and examined. Left lower extremity redness has been improving. ID recommended 1 more day of IV antibiotics 01/25/2024 Patient today in follow-up on the medical floor. Patient felt she had an all ergic reaction to the antibiotics throughout the evening with blistering in her mouth as well as swelling of the tongue. She is denying any shortness of breath and has not had any swallowing difficulties. She has had no rash. ID was notified and felt that this was not likely an allergic reaction and would like to continue with IV cefazolin and monitoring the patient closely. Her left lower extremity remains edematous and with features of cellulitis. Noted that she does have a history of lymphedema which does affect her left leg. Review of Systems Constitutional: Denied any fatigue denied any fever. Cardio vascular: denied any chest pain, palpitations Gastrointestinal: denied any nausea, vomiting, diarrhea Pulmonary: Denied any shortness of breath cough Neurologic denied any new focal deficits All inpatient medications were reviewed and appropriate changes in these medications as dictated in the interval history and assessment and plan. PHYSICAL EXAMINATION: GENERAL: The patient is alert and oriented x3, not in any acute distress. Well developed, well nourished. HEENT: Pupils are round and equally reacting to light. EOMI. No scleral icterus. No conjunctival pallor. Normocephalic, atraumatic. No pharyngeal erythema. No thyromegaly. CARDIOVASCULAR: S1 and S2 present. No murmurs, rubs, or gallops. PULMONARY: Chest is clear to auscultation, no wheezing or crackles. ABDOMEN: Soft, nontender, nondistended, normoactive bowel sounds. No palpable organomegaly. MUSCULOSKELETAL: No joint swelling or deformity. EXTREMITIES: left calf erythema seen improving from before NEUROLOGICAL: Gross neurological examination did not reveal any focal deficits. SKIN: No rashes. Assessment and plan Left lower extremity cellulitis Chronic nonocclusive thrombus of left lower extremity History of DVT/PE History of MRSA in the past to the foot History of lymphedema affecting the left lower extremity GI prophylaxis DVT prophylaxis Full code Continue IV fluids continue IV cefazolin continue pain management ID following MYRA wrap lower extremities and keep elevated hematology oncology consulted for chronic nonocclusive thrombus of left lower extremity, they recommended no need for any anticoagulation at this time Follow up with her lymphedema specialist out of [place] on discharge. The impression and plan of care has been dictated by Almita Mark, Nurse Practitioner as directed. Dr. Raj MD I have performed a history and physical examination and medical decision making of this patient, discussed the same with the dictator, and agree with the dictators assessment and plan as written, documented as a scribe. Based on total visit time, I have performed more than 50% of this visit. Objective - Vital Signs Vital signs: Vital Signs Temp 98.2 F 01/25/24 08:00 Pulse 83 01/25/24 08:00 Resp 16 01/25/24 08:00 BP 115/78 01/25/24 08:00 Pulse Ox 94 L 01/25/24 08:00 FiO2 Intake & Output 01/24/24 01/25/24 01/25/24 18:59 06:59 18:59 Other: Voiding Method Toilet Toilet # Voids 3 2 - Labs CBC & Chem 7: 01/25/24 06:33 01/24/24 11:44 Labs: Abnormal Lab Results - Last 24 Hours (Table) 01/25/24 Range/Units 06:33 Hgb 15.2 H (12.0-15.0) g/dL Hct 46.5 H (37.2-46.3) % RDW 14.6 H (11.5-14.5) % Microbiology - Last 24 Hours (Table) 01/22/24 06:45 Blood Culture - Preliminary Blood 01/22/24 06:30 Blood Culture - Preliminary Blood Assessment and Plan Time with Patient: Less than 30
[2024-01-25 20:56] LABS: ALT 30 U/L (8-44); AST 24 U/L (13-35); Albumin 4.1 g/dL (3.8-4.9); Albumin/Globulin Ratio 1.52 Ratio (1.60-3.17); Alkaline Phosphatase 47 U/L (41-126); BUN/Creat Ratio 24.25 Ratio (12.00-20.00); Blood Urea Nitrogen 19.4 mg/dL (9.0-27.0); Calcium 10.2 mg/dL (8.7-10.3); Carbon Dioxide 24.8 mmol/L (21.6-31.8); Chloride 103 mmol/L (96-109); Globulin 2.7 g/dL (1.6-3.3); Glucose 103 mg/dL (70-110); Potassium 4.6 mmol/L (3.5-5.5); Sodium 141 mmol/L (135-145); Total Bilirubin <0.2 mg/dL (0.3-1.2); Total Protein 6.8 g/dL (6.2-8.2)
[2024-01-26 08:11] VITALS: BP 107/69; PULSE 92; RESP 16; TEMP 98.5
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
--- NOTE | 2024-01-26 13:15 | P.PN ---
Subjective Progress Note Date: 01/26/24 Principal diagnosis: Reason for follow-up is left lower extremity cellulitis Patient is a 73-year-old female with a past medical history significant for left lower extremity DVT PE hypothyroidism presenting to the hospital with increasing pain swelling redness to left lower extremity has been diagnosed with a left lower extremity cellulitis On today's evaluation that is 01/26/2024, patient has been afebrile, patient is breathing comfortably and is currently on room air, patient denies having any significant cough no chest pain shortness of breath, patient denies nausea vomiting or diarrhea and no abdominal pain, left leg redness slightly decreased still having discomfort when he steps initially tolerated cefazolin without any problem. No new labs has been obtained today blood culture has been negative Objective - Vital Signs Vital signs: Vital Signs Temp 98.5 F 01/26/24 08:00 Pulse 92 01/26/24 08:00 Resp 16 01/26/24 08:00 BP 107/69 01/26/24 08:00 Pulse Ox 93 L 01/26/24 08:00 FiO2 Intake & Output 01/25/24 01/26/24 01/26/24 18:59 06:59 18:59 Other: Voiding Method Toilet Toilet # Voids 3 1 # Bowel Movements 1 - Exam GENERAL DESCRIPTION: An elderly female lying in bed in no distress RESPIRATORY SYSTEM: Unlabored breathing , decreased breath sounds at bases HEART: S1 S2 regular rate and rhythm , ABDOMEN: Soft , no tenderness EXTREMITIES: Left leg swelling redness slightly decreased - Labs CBC & Chem 7: 01/25/24 06:33 01/25/24 12:28 Labs: Abnormal Lab Results - Last 24 Hours (Table) 01/25/24 Range/Units 12:28 Anion Gap 13.20 H (4.00-12.00) mmol/L BUN/Creatinine Ratio 24.25 H (12.00-20.00) Ratio Total Bilirubin <0.2 L (0.3-1.2) mg/dL Albumin/Globulin Ratio 1.52 L (1.60-3.17) Ratio Microbiology - Last 24 Hours (Table) 01/22/24 06:45 Blood Culture - Preliminary Blood 01/22/24 06:30 Blood Culture - Preliminary Blood Assessment and Plan (1) Left leg cellulitis Current Visit: Yes Status: Acute Code(s): L03.116 - CELLULITIS OF LEFT LOWER LIMB SNOMED Code(s): 94469238644719106 Plan: 1patient presented to hospital with sepsis in this patient who did have a fever tachycardia elevated white count source is acute left lower extremity cellulitis in this patient with diffuse swelling and redness and evidence of athlete's foot likely streptococcal disease, clinically doubt MRSA or gram-negative infection 2-patient has tolerated cefazolin last 4 doses without any problem patient to finish therapy with oral Keflex 500 mg p.o. every 8 hours for 10 days along with nystatin cream in between the toes along with compression stocking and close outpatient follow-up multiple question concern answered Dictation was produced using [employer] dictation software. please excuse any gr ammatical, word or spelling errors. Time with Patient: Less than 30
--- NOTE | 2024-01-29 12:33 | CDI ---
Documentation Clarification Form Date: 01/29/2024 11:50:57 AM From: Marilin Chiu RN, CCDS Phone: [phone] Admit Date: 01/22/2024 10:35:00 AM Patient Name: Antonia Campo Visit Number: [id number] Discharge Date: 01/26/2024 02:26:00 PM ATTENTION: The Clinical Documentation Specialists (CDI) and [facility] Coding Staff appreciate your assistance in clarifying documentation. Please respond to the clarification below the line at the bottom and electronically sign. The CDI & [facility] Coding staff will review the response and follow-up if needed. Please note: Queries are made part of the Legal Health Record. If you have any questions, please contact the author of this message via ITS. Dr. Flakito Sanchez Sepsis is documented by the [employer] computer consultant. Additional clarification is requested. History/Risk Factors: DVT with chronic lymphedema, PE and thyroid disorder. Presented with severe pain in left foot, chills and weakness. Admitted with cellulitis. Clinical Indicators: 01/24 IM: "Left lower extremity cellulitis. Chronic nonocclusive thrombus of left lower extremity 01/26 ID: "patient presented to hospital with sepsis in this patient who did have a fever, tachycardia, elevated white count. Source is acute left lower extremity cellulitis. Patient with diffuse swelling and redness and evidence of athlete's foot likely streptococcal disease, clinically doubt MRSA or gram-negative infection." 01/21 Temp 99.1-99.3-98.5; HR 111, BP 99/61 01/21 blood cultures: no growth 01/21-01/24 Labs: WBC 21.2-12.93-6.94; CRP 2.1; ESR 34 Treatment: IV Acetaminophen 1000mg x1 on 01/21; IV Kefzol 2gm Q8H 01/21-01/25; IV Rocephin 2gm x1 on 01/21; Motrin 800mg x1 on 01/21; IV Vancomycin 1750mg x1 on 01/21; 1L 0.9 NS IV bolus x1 on 01/21 then 130mL/hr 01/21-01/22 After work up and study, please clarify which diagnosis is most appropriate? [ x ] Sepsis is a valid diagnosis as evidence by the following: (Please add rationale): [ ] Sepsis ruled out [ ] Sepsis treated prophylactically [ ] Other, please specify [ ] Unable to determine MTDD
== END 2024-01-26 14:26 | disposition home or self-care (01) | DRG 872 ==
LOC: EC 05:08 → 5NMEDONC 10:35 → 6NMEDSUR 13:46
PROVIDERS: ADMIT Hospitalist; ATTEND Hospitalist
DX: A41.9 Sepsis, unspecified organism (principal); L03.116 Cellulitis of left lower limb; I82.532 Chronic embolism and thrombosis of left popliteal vein; R00.0 Tachycardia, unspecified; Z86.14 Personal history of Methicillin resistant Staphylococcus aureus infection; Z86.711 Personal history of pulmonary embolism; Z88.0 Allergy status to penicillin; B35.3 Tinea pedis; B95.5 Unspecified streptococcus as the cause of diseases classified elsewhere; K76.0 Fatty (change of) liver, not elsewhere classified; K44.9 Diaphragmatic hernia without obstruction or gangrene; I87.002 Postthrombotic syndrome without complications of left lower extremity; E03.9 Hypothyroidism, unspecified; Z79.890 Hormone replacement therapy; Z88.2 Allergy status to sulfonamides
CPT/HCPCS: 36415; 71275; 80053; 81001; 82565; 83605; 83735; 84100; 84145; 84484; 85025; 85379; 85610; 85652; 85730; 86140; 87040; 87636; 93005; 93970; 96361; 96365; 96366; 96367; 96368; 99285

== ENCOUNTER → 2024-03-23 | Outpatient (CLI) | payer OTHER, MEDICARE ==
[2024-03-23 14:42] LABS: Basophils # (A) 0.03 X 10*3/uL (0.00-0.10); Basophils % (A) 0.5 %; Eosinophils % (A) 1.7 %; HCT 44.5 % (37.2-46.3); HGB 14.3 g/dL (12.0-15.0); Lymphocytes # (A) 2.41 X 10*3/uL (0.90-5.00); Lymphocytes % (A) 41.7 %; MCH 30.3 pg (27.0-32.0); MCHC 32.1 g/dL (32.0-37.0); MCV 94.3 FL (80.0-97.0); Mean Platelet Volume 9.5 FL (9.5-12.2); Monocytes # (A) 0.69 X 10*3/uL (0.20-1.00); Monocytes % (A) 11.9 %; NRBC Per 100 WBC 0 X 10*3/uL (0.00-0.01); Neutrophils # (A) 2.53 X 10*3/uL (1.80-7.70); Neutrophils % (A) 43.9 %; Platelet Count 324 X 10*3/uL (140-440); RBC 4.72 X 10*6/uL (4.10-5.20); RDW 14.2 % (11.5-14.5); WBC 5.78 X 10*3/uL (4.50-10.00)
[2024-03-23 14:56] LABS: Erythrocyte Sedimentation Rate 14 mm/Hr (0-30)
== END | disposition home or self-care (01) ==
LOC: LABWHC1 10:34
PROVIDERS: ATTEND Family Medicine
DX: D84.9 Immunodeficiency, unspecified (principal); B99.9 Unspecified infectious disease; R79.1 Abnormal coagulation profile
CPT/HCPCS: 36415; 85025; 85379; 85384; 85652; 86141

== ENCOUNTER → 2024-07-26 | Outpatient (CLI) | payer MEDICARE ==
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
== END | disposition home or self-care (01) ==
LOC: RADBDWWP 07:44
PROVIDERS: ATTEND Family Medicine
CPT/HCPCS: 77080